=== PATIENT | male | born 1955 | race Caucasian/White ===

== ENCOUNTER → 2018-10-14 | Outpatient (CLI) | payer OTHER ==
[2018-10-14 15:54] LABS: ALT 32 U/L (10-49); AST 28 U/L (14-35)
== END | disposition home or self-care (01) ==
LOC: LABWHC1 07:30
PROVIDERS: ATTEND Family Medicine
DX: N40.0 Benign prostatic hyperplasia without lower urinary tract symptoms (principal); R74.8 Abnormal levels of other serum enzymes
CPT/HCPCS: 36415; 84153; 84450; 84460

== ENCOUNTER → 2018-10-14 | Outpatient (CLI) | payer OTHER ==
--- NOTE | 2018-10-14 08:52 | US ---
EXAMINATION TYPE: US prostate transrectal DATE OF EXAM: 10/14/2018 COMPARISON: NONE CLINICAL HISTORY: R97.2 elevated PSA/N40.1 BPH. Abnormal labs. No increase urine frequency per patie nt. This examination was performed using the transrectal probe. EXAM MEASUREMENTS: Gland Size: 5.7 x 6.8 x 3.9 cm Volume: 79.36 Predicted PSA: 9.5 Actual PSA (if available):6.840 Estimated gland measurements due to enlarged size. Peripheral zone appears diffusely heterogenous. Possible peripheral vs central zone lesion on right = 0.6 x 0.4 x 0.3 cm IMPRESSION: 1. Marked glandular enlargement. 2. Heterogenous peripheral zone. Consider tissue diagnosis. Predicted PSA = volume x 0.12 ng/ml Calculated Volume = 0.5236 x L x W x H
== END | disposition home or self-care (01) ==
LOC: RADUSMAIN 07:43
PROVIDERS: ATTEND Urology
DX: N40.0 Benign prostatic hyperplasia without lower urinary tract symptoms (principal)
CPT/HCPCS: 76872

== ENCOUNTER → 2019-04-22 | Outpatient (CLI) | payer OTHER | END | disposition home or self-care (01) | LOC: LABWHC1 13:15 | PROVIDERS: ATTEND Urology | DX: R97.20 Elevated prostate specific antigen [PSA] (principal) | CPT/HCPCS: 36415; 84153 ==